=== PATIENT | male | born 1990 | race African-American/Black ===

== ENCOUNTER 2025-07-27 10:39 | Outpatient (CLI) | payer BC, SELFPAY ==
--- NOTE | ~2025-07-27 | US_ITS ---
Examination: US abdomen complete Clinical History: Left flank pain . Comparison: None Technique: Complete abdominal sonography Findings: Liver: Normal size. Echogenic. No intrahepatic biliary ductal dilatation. Normal hepatopedal flow main portal vein. Common duct: Normal caliber, 3 mm. Gallbladder: No stones. No wall thickening. No pericholecystic fluid. Spleen: Unremarkable. Pancreas: Unremarkable. Kidneys: Unremarkable. Aorta: No aneurysmal dilatation. Retrohepatic IVC: Unremarkable. IMPRESSION: 1. No acute findings. 2. Hepatic steatosis and/or hepatocellular disease. Reviewed, dictated and finalized at location R.
== END 2025-07-27 10:40 | disposition home or self-care (01) ==
LOC: MICIMG 10:40
DX: R10.A2 Flank pain, left side (principal); K76.0 Fatty (change of) liver, not elsewhere classified
CPT/HCPCS: 76700